=== PATIENT | female | born 1935 | race Caucasian/White ===

== ENCOUNTER 2017-03-11 19:15 | Emergency (ER) | payer MEDICARE ==
[~2017-03-11] VITALS: Ht 142.2 cm; Wt 40.0 kg
[2017-03-11 19:22] VITALS: BP 153/70; PULSE 61; RESP 14; TEMP 98.7; O2SAT 95
[2017-03-11] MEDS ORDERED: ACETAMINOPHEN/HYDROcodone 325 MG/5 MG TAB PO ONE (19:30)
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
--- NOTE | 2017-03-11 20:55 | RADRPT ---
EXAM DATE/TIME: 03/11/2017 20:06 [facility] COMPARISON: No previous studies available for comparison. INDICATIONS : Head pain due to fall. RADIATION DOSE: 56.35 CTDIvol (mGy) MEDICAL HISTORY : Hypertension. Parkinsons. SURGICAL HISTORY : Hysterectomy. ENCOUNTER: Initial ACUITY: 3 days PAIN SCALE: Non-responsive LOCATION: Bilateral cranial TECHNIQUE: Multiple contiguous axial images were obtained of the head. Using automated exposure control and adj ustment of the mA and/or kV according to patient size, radiation dose was kept as low as reasonably a chievable to obtain optimal diagnostic quality images. DICOM format image data is available electro nically for review and comparison. FINDINGS: CEREBRUM: The ventricles are normal for age. No evidence of midline shift, mass lesion, hemorrhage or acute in farction. No extra-axial fluid collections are seen. POSTERIOR FOSSA: The cerebellum and brainstem are intact. The 4th ventricle is midline. The cerebellopontine angle i s unremarkable. EXTRACRANIAL: The visualized portion of the orbits is intact. SKULL: The calvaria is intact. No evidence of skull fracture. CONCLUSION: 1. No acute intracranial abnormalities. Tobias Ramsey MD on March 11, 2017 at 20:52 Board Certified Radiologist. This report was verified electronically.
--- NOTE | 2017-03-11 20:56 | RADRPT ---
EXAM DATE/TIME: 03/11/2017 20:09 [facility] COMPARISON: No previous studies available for comparison. INDICATIONS : Neck pain due to fall. RADIATION DOSE: 28.17 CTDIvol (mGy) MEDICAL HISTORY : Hypertension. Parkinsons. Uterine cancer. SURGICAL HISTORY : Hysterectomy. ENCOUNTER: Initial ACUITY: 3 days PAIN SCALE: Non-responsive LOCATION: Bilateral neck region. TECHNIQUE: Volumetric scanning of the cervical spine was performed. Multiplanar reconstructions in the sagittal, coronal and oblique axial planes were performed. Using automated exposure control and adjustment o f the mA and/or kV according to patient size, radiation dose was kept as low as reasonably achievable to obtain optimal diagnostic quality images. DICOM format image data is available electronically f or review and comparison. FINDINGS: There is advanced degenerative disc disease in the cervical spine with reversal of normal cervical lo rdosis. Degenerative grade 1 anterolisthesis of C3 on C4. Advanced degenerative change at C4-5-6. No significant central canal stenosis. CONCLUSION: 1. Degenerative change. No acute findings. Tobias Ramsey MD on March 11, 2017 at 20:53 Board Certified Radiologist. This report was verified electronically.
--- NOTE | 2017-03-11 21:03 | RADRPT ---
EXAM DATE/TIME: 03/11/2017 19:43 [facility] COMPARISON: No previous studies available for comparison. INDICATIONS : Lower back pain after fall. MEDICAL HISTORY : Hypertension. Gastroesophageal reflux disease. Parkinsons. Uterine cancer. SURGICAL HISTORY : ORIF left hip. ENCOUNTER: Initial ACUITY: 4 - 6 days PAIN SCORE: 10/10 LOCATION: Lower back. FINDINGS: Mild rotatory dextroscoliosis. Grade 1 anterolisthesis of L5 on S1. Mild to moderate compression defo rmity noted incidentally at T12. Bones are osteopenic. CONCLUSION: 1. Moderate compression fracture of T12. No acute lumbar spine compression fracture. Probable degener ative grade 1 anterolisthesis of L5 on S1. Osteopenia. Tobias Ramsey MD on March 11, 2017 at 21:00 Board Certified Radiologist. This report was verified electronically.
--- NOTE | 2017-03-11 21:05 | RADRPT ---
EXAM DATE/TIME: 03/11/2017 19:43 [facility] COMPARISON: No previous studies available for comparison. INDICATIONS : Left hip pain after fall. MEDICAL HISTORY : Gastroesophageal reflux disease. Hypertension. Parkinsons. Uterine cancer. SURGICAL HISTORY : ORIF left hip. ENCOUNTER: Initial ACUITY: 4 - 6 days PAIN SCORE: 10/10 LOCATION: Left hip. FINDINGS: Examination of the left hip was performed with AP Pelvis. Previous reggie and screw fixation proximal le ft femur. Osteopenia. No acute fracture identified. CONCLUSION: 1. Previous fixation left femur. Osteopenia. Tobias Ramsey MD on March 11, 2017 at 21:01 Board Certified Radiologist. This report was verified electronically.
[2017-03-11 21:48] VITALS: BP 142/63; PULSE 61; RESP 14; O2SAT 95
== END 2017-03-11 23:18 | disposition home or self-care (01) ==
LOC: NEPE 19:15
DX: S22.089A Unspecified fracture of T11-T12 vertebra, initial encounter for closed fracture (principal); M25.552 Pain in left hip; M50.321 Other cervical disc degeneration at C4-C5 level; M50.322 Other cervical disc degeneration at C5-C6 level; K21.9 Gastro-esophageal reflux disease without esophagitis; I10 Essential (primary) hypertension; M81.0 Age-related osteoporosis without current pathological fracture; G20 Parkinson's disease; W05.2XXA Fall from non-moving motorized mobility scooter, initial encounter
CPT/HCPCS: 70450; 72110; 72125; 73502; 99285; L0200; L0484